=== PATIENT | female | born 1950 | race Caucasian/White ===

== ENCOUNTER → 2022-09-18 | Day surgery (SDC) | payer MEDICARE ==
[~2022-09-18] MED LIST: PROPOFOL 20 ML ONE; Succinylcholine 200 MG/10 ml SYRINGE FS ONE
[2022-09-18 07:35] VITALS: BP 120/85; TEMP 97.4
== END ==
LOC: CSHSDC 06:24
PROVIDERS: ATTEND Specialist
DX: I48.0 Paroxysmal atrial fibrillation (principal); I10 Essential (primary) hypertension; E78.2 Mixed hyperlipidemia; I49.3 Ventricular premature depolarization; I42.8 Other cardiomyopathies; I70.213 Atherosclerosis of native arteries of extremities with intermittent claudication, bilateral legs; E03.8 Other specified hypothyroidism; E55.9 Vitamin D deficiency, unspecified; Z87.891 Personal history of nicotine dependence; Z79.01 Long term (current) use of anticoagulants; Z79.899 Other long term (current) drug therapy; Z90.710 Acquired absence of both cervix and uterus; Z98.890 Other specified postprocedural states
CPT/HCPCS: 92960; 93005; 93010; J2704

== ENCOUNTER 2024-01-06 | Outpatient (CLI) | payer MEDICARE | END 2024-01-06 10:04 | disposition home or self-care (01) | DX: R91.8 Other nonspecific abnormal finding of lung field (principal); Z87.891 Personal history of nicotine dependence; J44.9 Chronic obstructive pulmonary disease, unspecified ==